=== PATIENT | female | born 1985 | race Caucasian/White ===

== ENCOUNTER 2017-04-17 06:31 | Inpatient (IN) | payer BC ==
[~2017-04-17] VITALS: Ht 167.6 cm; Wt 82.0 kg
--- NOTE | ~2017-04-17 | OR ---
PATIENT'S NAME: MICHELLE DENG [facility] AGE: 31 Y [address] ROOM: [place] [id number] LOCATION: GOBS ADMIT DATE: 04/17/2017 OR/Procedure Report DISCHARGE DATE: FAMILY PHYSICIAN: Kenia Lopez MD ATTENDING PHYSICIAN: Kenia Lopez SURGEON: Kenia Lopez MD PAYMENT REP: DATE OF PROCEDURE: 04/17/2017 TIME: 1706 hours. DELIVERY NOTE: This 31-year-old, G3, P2, female, under epidural anesthesia delivered a viable male , weighing 5 pounds 13 ounces with scores of 8 and 9 at 1 and 5 minutes. Mother came in for induction of labor at 40+ 2/7th weeks . The recommendation was for induction of labor last week because of IUGR, but the patient wished to wait. The patient's cervix was favorable. We did one dose of Cytotec and started Pitocin 4 hours later. She progressed nicely to complete. Delivery was after the third push. There were 3 nuchal cords that we delivered through because baby delivered so fast. The baby was bulb suctioned at delivery. Also, baby was stimulated, had a nice cry. The cord was then doubly clamped and baby was put on maternal abdomen where father cut the cord. Cord pH and cord blood was sent for analysis. The intact placenta with 3-vessel cord delivered spontaneously shortly after delivery of the baby. The uterus was massaged and Pitocin is opened up and given through a bag of IV fluids. Her uterus clamped down nicely. The patient's vagina, cervix, and perineum were explored and she has no tears and no repair necessary. Sponge counts and needle counts are correct. Both mother and baby are in stable condition. ESTIMATED BLOOD LOSS: 300 mL. MD KAYCEE PUGH/magalil /[id number] d: 04/17/17 2300 t: 04/25/17 1220, OPERATIVE SUMMARY
[~2017-04-17 06:31] MED LIST: PRENATAL 1+1)(P1 TAB PO
[2017-04-17 08:08] LABS: BASOPHIL % 0.2 %; EOSINOPHIL # 0.1 K/uL (0.0-0.5); EOSINOPHIL % 0.6 %; HEMATOCRIT 37.7 % (33.0-46.0); HEMOGLOBIN 13.2 g/dL (11.0-15.0); IMMATURE GRANULOCYTE # 0.1 K/uL (0.0-0.3); IMMATURE GRANULOCYTE % 0.6 %; LYMPHOCYTE # 1.8 K/uL (0.8-4.0); LYMPHOCYTE % 18.1 %; MCH 32.6 pg (27.0-34.0); MCV 93.1 fl (83.0-98.0); MONOCYTE # 0.4 K/uL (0.0-1.0); MONOCYTE % 4.1 %; MPV 10.1 fl (9.4-12.4); NEUTROPHIL # (ANC) 7.6 K/uL (1.8-7.8); NEUTROPHIL % 76.4 %; NRBC % 0 /100WBC (0-0.00); PLATELET COUNT 210 K/uL (150-450); RBC 4.05 M/uL (3.50-5.00); RDW-CV 13.3 % (11.9-14.6); WBC 9.9 K/uL (4.0-11.0)
[2017-04-17 17:43] LABS: BICARBONATE 23.3 mmol/L (18.0-23.0); PCO2 58 mmHg (35-45); PO2 18 mmHg (80-90)
[2017-04-18 05:07] LABS: BASOPHIL % 0.2 %; EOSINOPHIL # 0.1 K/uL (0.0-0.5); EOSINOPHIL % 0.6 %; HEMATOCRIT 32.1 % (33.0-46.0); HEMOGLOBIN 11.2 g/dL (11.0-15.0); IMMATURE GRANULOCYTE # 0.1 K/uL (0.0-0.3); IMMATURE GRANULOCYTE % 0.6 %; LYMPHOCYTE # 2.2 K/uL (0.8-4.0); LYMPHOCYTE % 17.6 %; MCH 32.1 pg (27.0-34.0); MCHC 34.9 gm/dL (32.0-36.5); MONOCYTE # 0.6 K/uL (0.0-1.0); MONOCYTE % 4.9 %; MPV 9.6 fl (9.4-12.4); NEUTROPHIL # (ANC) 9.7 K/uL (1.8-7.8); NEUTROPHIL % 76.1 %; NRBC % 0 /100WBC (0-0.00); PLATELET COUNT 181 K/uL (150-450); RBC 3.49 M/uL (3.50-5.00); RDW-CV 13.4 % (11.9-14.6); WBC 12.7 K/uL (4.0-11.0)
--- NOTE | 2017-04-18 06:20 | NUR ---
VSS. Pain rating WNL. Last had Motrin at 2109. Aqua K pad to lower back for back discomfort. Fundus firm, 1 down, mildine. Moderate flow. Showered w/o difficulty last night. Voiding w/o difficulty. Saline lock dc'd this am. Doing well
--- NOTE | 2017-04-18 17:02 | NUR ---
Met with patient and spouse today. Introduced myself and explained my role with the CM department. They state they have all the necessary items for baby at home. Instructed her to contact her insurance and notify them of baby's . I also reviewed signs and symptoms of post depression and left her the hand out to refer to. They both deny any needs or worries regarding discharge. Will continue to follow and offer supports.
--- NOTE | 2017-04-18 18:18 | NUR ---
Last VS: T:98.6 P:80 R: 16 BP: 105/67 Pain rating: . Last pain med: motrin at 0930 Medicated at: Effective: Breasts: , Nipples: Fundus: firm and even Lochia: small flow Epis/Perineum: bottom ok Voiding well: yes Significant event: . patient up and about. did have one temp of 99.0, but other vital signs were good. does have some back pain, thinks it is the epidural. has heat pack and ice pack that alternates, but perfers ice pack.
--- NOTE | 2017-04-19 05:24 | NUR ---
Last VS: T:98.1 P:65 R: 16 BP: 103/67 Pain rating: . Last pain med: Motrin Medicated at: Effective: Sleeping Breasts:SOFT , Nipples: ERECT Fundus: FIRM/EVEN Lochia:RHUBRA , Epis/Perineum: TENDER Voiding well: YES Significant event: USED NIPPLE SHIELD THIS SHIFT TO FEED . HAD DIFFICULTY WITH INFANT LATCHING ON PRIOR TO USE OF SHIELD.
[2017-04-19] MEDS ORDERED: LANSINOH7 GM TOP (12:05)
[2017-04-19] MEDS ORDERED: MOTRIN800 MG PO (12:05)
[2017-04-19] MEDS ORDERED: APNO TOP (12:05)
== END 2017-04-19 12:35 | disposition disaster alternative care site (69) | DRG 775 ==
LOC: GOBS 06:31 → GOBM 06:31 → GOBS 06:32
PROVIDERS: ADMIT Family Medicine
PROC: 10E0XZZ Delivery of Products of Conception, External Approach (ICD-10-PCS; principal; 2017-04-17)
PROC: 3E033VJ Introduction of Other Hormone into Peripheral Vein, Percutaneous Approach (ICD-10-PCS; principal; 2017-04-17)
PROC: 4A1HX4Z Monitoring of Products of Conception, Cardiac Electrical Activity, External Approach (ICD-10-PCS; principal; 2017-04-17)
DX: O36.5930 Maternal care for other known or suspected poor fetal growth, third trimester, not applicable or unspecified (principal); E04.9 Nontoxic goiter, unspecified; O99.284 Endocrine, nutritional and metabolic diseases complicating childbirth; Z3A.40 40 weeks gestation of pregnancy; Z37.0 Single live birth
CPT/HCPCS: J2001; J2590; J3010; J7120